=== PATIENT | female | born 1990 | race Caucasian/White ===

== ENCOUNTER 2020-06-16 09:37 | Observation (INO) | payer OTHER, SELFPAY ==
[~2020-06-16] VITALS: Ht 160 cm; Wt 69.4 kg
[2020-06-16 10:15] LABS: BILIRUBIN,URINE NEGATIVE (NEGATIVE); BLOOD, URINE NEGATIVE (NEGATIVE); COLOR,URINE YELLOW (YELLOW); GLUCOSE,URINE NEGATIVE (NEGATIVE); KETONES,URINE NEGATIVE (NEGATIVE); LEUKOCYTE ESTERASE ,URINE 2+ (NEGATIVE); NITRITE, URINE NEGATIVE (NEGATIVE); PROTEIN URINE NEGATIVE (NEGATIVE); UROBILINOGEN,URINE 0.2 (0.2-1.0)
[2020-06-16] MEDS ORDERED: TERBUTALINE SULFATE 1 MG/ML VIAL SUBCUT PRN (10:15)
[2020-06-16 10:19] LABS: CLARITY/URINE HAZY (CLEAR)
[2020-06-16 10:26] LABS: BASOPHILS % (AUTO) 0.6 % (0.0-2.0); EOSINOPHILS # (AUTO) 0.1 K/uL (0.0-0.4); EOSINOPHILS % (AUTO) 0.8 % (0.0-4.0); HEMOGLOBIN 11.8 g/dL (12.0-16.0); LYMPHOCYTES # (AUTO) 1.8 K/uL (1.0-5.5); MEAN CORPUSCULAR HEMOGLOBIN 27 pg (27-31); MEAN CORPUSCULAR HGB CONC 33 % (32-36); MEAN CORPUSCULAR VOLUME 82 fL (79.0-98.0); MONOCYTES # (AUTO) 0.5 K/uL (0.0-1.0); MONOCYTES % (AUTO) 6.7 % (1.7-9.3); NEUTROPHILS # (AUTO) 5.7 K/uL (1.8-7.7); NEUTROPHILS % (AUTO) 69.9 % (40.0-70.0); PLATELET COUNT (AUTO) 216 K/uL (130-430); RED BLOOD CELL COUNT(AUTO) 4.37 MIL/uL (4.2-6.2); RED CELL DISTRIBUTION WIDTH 13.1 % (9.0-15.0); WHITE BLOOD COUNT (AUTO) 8.1 K/uL (4.8-10.8)
[2020-06-16 10:32] LABS: BACTERIA,URINE MODERATE /HPF (None Seen); RBC,URINE 0-3 /HPF (0-3); URINE AMORPHOUS URATE 2+ /HPF (None Seen)
[2020-06-16 10:33] LABS: MUCUS,URINE 1+ /LPF (None Seen)
[2020-06-16] MEDS: BETAMET ACET/BETAMET NA PH 30 MG/5 ML VIAL IM SCH (10:41)
[2020-06-16 10:46] LABS: CALCIUM 8.4 mg/dL (8.4-11.0); CREATININE 0.61 mg/dL (0.55-1.30)
[2020-06-16 11:02] LABS: ALBUMIN 2.2 g/dL (3.4-4.8); TOTAL BILIRUBIN 0.4 mg/dL (0.0-1.0)
[2020-06-16 11:03] LABS: URIC ACID 4.1 mg/dL (2.4-7.0)
[2020-06-16] MEDS: LR 1,000 ML IV SCH ×2 (11:30→17:30)
[2020-06-16] MEDS ORDERED: NIFEdipine (O.B. USE ONLY) 10 MG CAPSULE PO ONE (11:45)
[2020-06-16] MEDS ORDERED: NIFEdipine (O.B. USE ONLY) 10 MG CAPSULE PO SCH (18:00)
[2020-06-16] MEDS ORDERED: ACETAMINOPHEN 500 MG TABLET PO PRN (19:15)
[2020-06-16] MEDS: NIFEdipine (O.B. USE ONLY) 10 MG CAPSULE PO SCH (20:17)
[2020-06-17] MEDS: LR 1,000 ML IV SCH ×2 (02:15→11:59)
[2020-06-17] MEDS: NIFEdipine (O.B. USE ONLY) 10 MG CAPSULE PO SCH ×2 (04:03→12:00)
[2020-06-17] MEDS: BETAMET ACET/BETAMET NA PH 30 MG/5 ML VIAL IM SCH (10:46)
== END 2020-06-17 13:40 | disposition home or self-care (01) ==
LOC: SPU 09:37
PROVIDERS: ADMIT Obstetrics & Gynecology; ATTEND Obstetrics & Gynecology
DX: O26.893 Other specified pregnancy related conditions, third trimester (principal); R03.0 Elevated blood-pressure reading, without diagnosis of hypertension; Z20.822 Contact with and (suspected) exposure to COVID-19; O62.9 Abnormality of forces of labor, unspecified; Z3A.35 35 weeks gestation of pregnancy
CPT/HCPCS: 36415; 76805; 80053; 81000; 82239; 82570; 84550; 85025; 87081; 87426; 96360; 96361 ×2; 96372 ×2; G0378 ×2; J0702; J7120 ×2

== ENCOUNTER 2020-07-02 12:28 | Inpatient (IN) | payer OTHER, SELFPAY ==
[~2020-07-02] VITALS: Ht 160 cm; Wt 68.9 kg
[2020-07-02] MEDS ORDERED: OXYTOCIN/0.9 % SODIUM CHLORIDE 1,000 ML IV SCH (21:00)
[2020-07-02] MEDS ORDERED: TERBUTALINE SULFATE 1 MG/ML VIAL SUBCUT ONE (21:00)
[2020-07-02] MEDS ORDERED: NALBUPHINE HCL 10 MG/ML AMP IM PRN (21:00)
[2020-07-02] MEDS ORDERED: DINOPROSTONE 10 MG SUPP VG ONE (21:00)
[2020-07-02] MEDS ORDERED: NALBUPHINE HCL 10 MG/ML AMP IVP PRN (21:00)
[2020-07-02 21:50] LABS: BASOPHILS % (AUTO) 0.5 % (0.0-2.0); EOSINOPHILS % (AUTO) 0.3 % (0.0-4.0); HEMATOCRIT 36.1 % (36-48); HEMOGLOBIN 12.1 g/dL (12.0-16.0); LYMPHOCYTES # (AUTO) 2.4 K/uL (1.0-5.5); LYMPHOCYTES % (AUTO) 32.3 % (20.5-51.5); MEAN CORPUSCULAR HEMOGLOBIN 28 pg (27-31); MEAN CORPUSCULAR HGB CONC 33 % (32-36); MEAN CORPUSCULAR VOLUME 82 fL (79.0-98.0); MONOCYTES # (AUTO) 0.5 K/uL (0.0-1.0); MONOCYTES % (AUTO) 6.5 % (1.7-9.3); NEUTROPHILS # (AUTO) 4.4 K/uL (1.8-7.7); NEUTROPHILS % (AUTO) 60.4 % (40.0-70.0); PLATELET COUNT (AUTO) 196 K/uL (130-430); RED BLOOD CELL COUNT(AUTO) 4.39 MIL/uL (4.2-6.2); RED CELL DISTRIBUTION WIDTH 14.8 % (9.0-15.0); WHITE BLOOD COUNT (AUTO) 7.3 K/uL (4.8-10.8)
[2020-07-02] MEDS ORDERED: TEMAZEPAM 15 MG CAPSULE PO PRN (23:30)
[2020-07-03] MEDS ORDERED: TEMAZEPAM 15 MG CAPSULE ONE (00:11)
[2020-07-03] MEDS ORDERED: DINOPROSTONE 10 MG SUPP VG ONE (12:45)
[2020-07-03] MEDS: LR 1,000 ML IV SCH (13:00)
[2020-07-04] MEDS ORDERED: AMPICILLIN SODIUM 2 GM in NS 100 ML IV ONE (00:45)
[2020-07-04] MEDS ORDERED: AMPICILLIN SODIUM 2 GM VIAL ONE (01:08)
[2020-07-04] MEDS: LR 1,000 ML IV SCH ×2 (01:18→03:28)
[2020-07-04] MEDS ORDERED: ROPIVACAINE HCL/PF 0.2% 200 ML ONE (02:55)
[2020-07-04] MEDS ORDERED: fentaNYL CITRATE/PF 100 MCG/2 ML AMP ONE (02:55)
[2020-07-04] MEDS ORDERED: FENT2mCg/mL-ROPIVA0.2%/NS EPID 200 ML EP SCH (03:45)
[2020-07-04] MEDS ORDERED: LR 500 ML IV ONE (03:45)
[2020-07-04] MEDS ORDERED: AMPICILLIN SODIUM 1 GM VIAL ONE (04:38)
[2020-07-04] MEDS ORDERED: AMPICILLIN SODIUM 1 GM in NS 50 ML IV SCH (05:00)
[2020-07-04] MEDS ORDERED: HYDROCORTISONE 0.5% CREAM 28.4 GM CREAM.GM. TP PRN (11:15)
[2020-07-04] MEDS ORDERED: SENNOSIDES/DOCUSATE SODIUM 1 TAB TABLET(SENOKOT-S) PO PRN (11:15)
[2020-07-04] MEDS ORDERED: LANOLIN 7 GM OINT. TP PRN (11:15)
[2020-07-04] MEDS ORDERED: ANUSOL 1 EA SUPP.RECT (PREPARATION H) RC PRN (11:15)
[2020-07-04] MEDS ORDERED: DERMOPLAST SPRAY TP PRN (11:15)
[2020-07-04] MEDS ORDERED: OXYCODONE/ACETAMINOPHEN 5-325 TABLET PO PRN ×2 (11:15)
[2020-07-04] MEDS ORDERED: DIPH-TET-PERTUS Vaccine 0.5 ML VIAL (ADACEL) I.M. PRN (11:15)
[2020-07-04] MEDS ORDERED: ONDANSETRON HCL 4 MG/2 ML VIAL IVP PRN (11:15)
[2020-07-04] MEDS ORDERED: OXYTOCIN/0.9 % SODIUM CHLORIDE 1,000 ML IV ONE ×2 (11:15)
[2020-07-04] MEDS ORDERED: WITCH HAZEL LEAF 1 MED.PAD MED.PAD TP PRN (11:15)
[2020-07-04] MEDS ORDERED: RHO(D) IMMUNE GLOBULIN/MALTOSE 1500 UNITS/1.3 ML (WINHRO) IM PRN (11:15)
[2020-07-04] MEDS ORDERED: OXYTOCIN/0.9 % SODIUM CHLORIDE 1,000 ML IV SCH (11:15)
[2020-07-04] MEDS ORDERED: MEASLES,MUMPS&RUBELLA VACC/PF 12500 UNIT/0.5 ML VIAL SUBQ PRN (11:15)
[2020-07-04] MEDS ORDERED: TEMAZEPAM 15 MG CAPSULE PO PRN (11:15)
[2020-07-04] MEDS ORDERED: DOCUSATE SODIUM 100 MG CAPSULE PO PRN ×2 (11:15)
[2020-07-04] MEDS ORDERED: ONDANSETRON HCL 4 MG/2 ML VIAL ONE (11:24)
[2020-07-04] MEDS: IBUPROFEN 600 MG TABLET PO SCH ×2 (13:22→17:58)
[2020-07-05] MEDS: IBUPROFEN 600 MG TABLET PO SCH ×4 (00:09→18:04)
[2020-07-05 06:55] LABS: BASOPHILS # (AUTO) 0.1 K/uL (0.0-0.2); BASOPHILS % (AUTO) 0.4 % (0.0-2.0); EOSINOPHILS # (AUTO) 0.1 K/uL (0.0-0.4); EOSINOPHILS % (AUTO) 0.3 % (0.0-4.0); HEMATOCRIT 32.8 % (36-48); HEMOGLOBIN 10.7 g/dL (12.0-16.0); LYMPHOCYTES # (AUTO) 4.2 K/uL (1.0-5.5); LYMPHOCYTES % (AUTO) 24.7 % (20.5-51.5); MEAN CORPUSCULAR HEMOGLOBIN 27 pg (27-31); MEAN CORPUSCULAR HGB CONC 33 % (32-36); MEAN CORPUSCULAR VOLUME 84 fL (79.0-98.0); MONOCYTES # (AUTO) 0.8 K/uL (0.0-1.0); MONOCYTES % (AUTO) 4.8 % (1.7-9.3); NEUTROPHILS # (AUTO) 11.8 K/uL (1.8-7.7); NEUTROPHILS % (AUTO) 69.8 % (40.0-70.0); PLATELET COUNT (AUTO) 183 K/uL (130-430); RED BLOOD CELL COUNT(AUTO) 3.92 MIL/uL (4.2-6.2); RED CELL DISTRIBUTION WIDTH 15.4 % (9.0-15.0); WHITE BLOOD COUNT (AUTO) 16.9 K/uL (4.8-10.8)
[2020-07-05 19:06] LABS: FTA-Ab (T PALLIDUM) Non Reactive (Non Reactive)
== END 2020-07-05 18:40 | disposition home or self-care (01) | DRG 807 ==
LOC: SPU 20:47
PROVIDERS: ADMIT Obstetrics & Gynecology; ATTEND Obstetrics & Gynecology
PROC: 10E0XZZ Delivery of Products of Conception, External Approach (ICD-10-PCS; principal; 2020-07-04)
PROC: 3E0P7VZ Introduction of Hormone into Female Reproductive, Via Natural or Artificial Opening (ICD-10-PCS; 2020-07-04)
PROC: 3E0R3BZ Introduction of Anesthetic Agent into Spinal Canal, Percutaneous Approach (ICD-10-PCS; 2020-07-04)
PROC: 00HU33Z Insertion of Infusion Device into Spinal Canal, Percutaneous Approach (ICD-10-PCS; 2020-07-04)
DX: O13.4 Gestational [pregnancy-induced] hypertension without significant proteinuria, complicating childbirth (principal); Z37.0 Single live birth; O99.824 Streptococcus B carrier state complicating childbirth; Z20.822 Contact with and (suspected) exposure to COVID-19; O69.81X0 Labor and delivery complicated by cord around neck, without compression, not applicable or unspecified; Z3A.37 37 weeks gestation of pregnancy
CPT/HCPCS: 36415; 81002-TC; 85025; 86592; 86780; 86886; 86900; 86901; 94760; J0290; J2300; J2405; J2590; J3010; J7120